=== PATIENT | female | born 1940 | race Caucasian/White ===

== ENCOUNTER 2025-07-12 15:28 | Inpatient (IN) ==
[2025-07-12] MEDS ORDERED: SODIUM CHLORIDE 0.9% 100 ML IV PRN (15:58)
--- NOTE | 2025-07-12 16:03 | Emergency Department Note ---
Impression & Plan Upper GI bleed, Anemia, Hyperglycemia, Fracture of lumbar spine ED Provider Note NAME: ANABELLE NEWBERRY AGE: 84 SEX: F : 1940 ARRIVES VIA: Walk-In INFORMANT: Patient ED PROVIDER(S): Ochoa Lewis DO CHIEF COMPLAINT: Black stools, weakness and shortness of breath HPI: Patient is an 84-year-old female who presents to the ER with a past medical history of diabetes, hypertension, hypothyroidism. She notes that she has been very weak and rundown for the past week. She has had 2 multiple dark tarry stools. She does take Eliquis. Daughter is present at bedside and provides additional history for A-fib. She denies any headache or change in vision. When she is up moving around she does get short of breath. She does have some mild belly pain. No dysuria, urgency, or frequency. No other exacerbating or remitting factors. ADDITIONAL HISTORY OBTAINED: Per HPI Chronic Medical/Social Conditions Affecting Care: Per HPI PAST MEDICAL HISTORY:See Below PAST SURGICAL HISTORY:See Below FAMILY HISTORY:See Below SOCIAL HISTORY:See Below HOME MEDICATIONS:See Below ALLERGIES:See Below VITALS:See Below PHYSICAL EXAMINATION: GENERAL: Sitting up in bed, alert, well appearing, well nourished, no distress, non-toxic EYE EXAM: normal conjunctiva. PERRL and EOM's grossly intact. OROPHARYNX: no exudate, no erythema, lips, buccal mucosa, and tongue normal and mucous membranes are moist NECK: supple, no nuchal rigidity, no adenopathy, non-tender LUNGS: Clear to auscultation. Normal chest wall mechanics HEART: no murmurs, S1 normal and S2 normal ABDOMEN: abdomen soft, non-tender, normo-active bowel sounds, no masses, no rebound or guarding. RECTAL:Hem + black stools UPPER EXTREMITIES: upper extremities are grossly normal. LOWER EXTREMITIES: No pitting edema. NEURO EXAM: Normal sensorium, cranial nerves II-XII grossly intact, normal speech, no gross weakness of arms, no gross weakness of legs. No drift. Finger to nose intact. Gross sensation intact. MEDICAL DECISION MAKING: Patient is an 84-year-old female who presents ER for the above-stated complaint. IV was established and blood work was obtained. Hemoglobin went from 12-9. Globin LFTs bilirubin is unremarkable. Patient was typed and crossed. She has no other complaints at this time. CT showed an L4 fracture likely secondary to a fall several days ago. Patient was placed on a Protonix drip and bolus. Discussed case with hospitalist for further evaluation management treatment. Vitals were stable consequently did not contact GI at this time. Will not reverse at this time. Consults/Care Managements Discussions: Per [facility] Triage Nursing notes reviewed. Limited review of prior medical records performed Vital Signs: reviewed and remarkable for no significant abnormalities Differential diagnosis: Diverticulosis, AVM, coagulopathy, colitis, inflammatory bowel disease, malignancy, Kelsi-Olivo tear, esophagitis, peptic ulcer disease, variceal bleed, gastritis, epistaxis, fissure, hemorrhoids, as well as other pathologies. ER treatment provided: See below Diagnostics interpreted by me include EKG and cardiac monitoring as listed below: -Cardiac Monitoring: An order was placed for continuous cardiac monitoring. The monitor shows a rate of 70 with sinus rhythm. -ECG: Sinus rhythm rate of 66 First-degree AV block Right bundle branch block QTc 434 -Laboratory studies:Interpreted by me as stated above in MDM and shown below. Imaging studies: Xrays: As interpreted by me:none CTs show: CT abdomen pelvis show L4 fracture Procedures:none Critical Care: None Past Med/Surg History Problem List (Updated 07/12/25 @ 22:12 by Ochoa Lewis DO) Fracture of lumbar spine (Acute) Hyperglycemia (Acute) Anemia (Acute) Chronic anticoagulation Upper GI bleed (Acute) Compression fracture of L4 vertebra Spinal stenosis CAD (coronary artery disease) Paroxysmal A-fib History of total right knee replacement (Chronic) Fall (Acute) Left wrist fracture (Acute) Ankle fracture, left (Acute) Diabetes mellitus, type II (Chronic) Hypertension (Chronic) Hypothyroidism (Chronic) GERD (gastroesophageal reflux disease) (Chronic) Social History Smoking Status: Never smoker Second Hand Exposure: No; Do You Dip or Chew Tobacco: No; Tobacco Cessation Education Requested by Patient: No Hx Alcohol Use: No Hx Substance Use: No Preferred Language: Vincentian Communication Ability: Effective Materials Branch Chief Required: No Beliefs That Will Affect Care: None Current Living Situation: Family Current Living Situation Comment: Lives with granddaughter Cierra Other Information That Helps Us Care for You: No Feels Safe at Home: Yes Safety Concerns: Feels Safe At This Time Assistive Devices: Denture - Upper, Denture - Lower, Hospital Bed and Walker Allergies Allergies Allergy/AdvReac Type Severity Reaction Status Date / Time meperidine Allergy Intermediate GI SYMPTOMS Verified 07/12/25 18:51 morphine Allergy Intermediate GI SYMPTOMS Verified 07/12/25 18:51 Yohcqls-NRY-CdT Reductase Allergy Intermediate makes leg Verified 07/12/25 18:51 Inhibitor "sleepy" [Imzihis-Cyc-Qns Reductase Inhibitor] Home Meds Home Medications Medication Instructions Recorded Confirmed FUROSEMIDE (LASIX) 20 mg PO DAILY #0 tabs 02/12/15 INSULIN DETEMIR (LEVEMIR) 44 unit SC DAILY ##0 02/12/15 Levothyroxine Sodium (Synthroid) 88 mcg PO DAILY ##0 02/12/15 Metoprolol Succinate (TOPROL XL) 25 mg PO DAILY #30 tabs 02/12/15 Pantoprazole (Protonix) 40 mg PO DAILY #30 tabs 02/12/15 Potassium Chloride (K-Tabs) 30 meq PO DAILY ##0 02/12/15 Previous Rx's Medication Instructions Recorded Acetaminophen (Tylenol Extra 2 tabs PO Q6H PRN moderate pain ##0 02/17/15 Strength) Tramadol (Ultram) 50 mg PO Q6H PRN severe pain #40 02/17/15 tabs platform attachment ##1 02/17/15 wheel chair ##1 02/17/15 Results & Data (ED) Vital Signs Vital Signs - 24 hr 07/12/25 15:46 07/12/25 16:05 07/12/25 16:30 Temperature 36.6 C Temperature Source Temporal Artery Scan Pulse Rate 91 H 71 68 Pulse Rate from SpO2 Sensor Respiratory Rate 18 21 Respiratory Effort / Characteristics Non-Labored Spontaneous Respiratory Depth Normal Blood Pressure 109/61 148/71 H Blood Pressure Mean 77 119 Pulse Oximetry 96 95 96 Oxygen Delivery Method Room Air Room Air Sepsis Recent Fever Within 48 Hours No Sepsis New/Unexplained Change in Mental Status No Sepsis Action Taken by Nursing No Action Required 07/12/25 16:51 07/12/25 17:00 07/12/25 18:00 Temperature Temperature Source Pulse Rate 70 69 67 Pulse Rate from SpO2 Sensor 64 Respiratory Rate 16 18 Respiratory Effort / Characteristics Respiratory Depth Blood Pressure 131/73 151/81 H Blood Pressure Mean 100 104 Pulse Oximetry 97 97 Oxygen Delivery Method Sepsis Recent Fever Within 48 Hours Sepsis New/Unexplained Change in Mental Status Sepsis Action Taken by Nursing 07/12/25 18:30 07/12/25 19:30 Temperature Temperature Source Pulse Rate 71 67 Pulse Rate from SpO2 Sensor Respiratory Rate 16 17 Respiratory Effort / Characteristics Respiratory Depth Blood Pressure 147/74 H 157/74 H Blood Pressure Mean 117 125 Pulse Oximetry 97 96 Oxygen Delivery Method Sepsis Recent Fever Within 48 Hours Sepsis New/Unexplained Change in Mental Status Sepsis Action Taken by Nursing Laboratory Data 07/12/25 21:39 07/12/25 16:00 Lab Results 07/12/25 07/12/25 07/12/25 Range/Units 16:00 16:14 16:29 WBC 6.57 (4.8-10.8) K/ul RBC 3.79 L (4.20-5.40) M/uL Hgb 9.6 L (12.0-16.0) g/dl POC Hgb 10.5 L (12.0-16.0) g/dl Hct 31.2 L (37.0-47.0) % POC Hct 31 L (37-47) % MCV 82.3 (80.0-100.0) fL MCH 25.3 (25.0-34.0) pg MCHC 30.8 L (32.0-36.0) g/dL RDW Std Deviation 44.8 (36.4-46.3) fL RDW Coeff of Tracy 15.0 H (11.5-14.5) % Plt Count 254 (130-400) K/uL MPV 10.1 (9.4-12.4) fL Immature Gran % (Auto) 0.3 % Neut % (Auto) 54.5 % Lymph % (Auto) 33.5 % Burt % (Auto) 8.8 % Eos % (Auto) 2.4 % Baso % (Auto) 0.5 % Neut # (Auto) 3.58 (1.40-6.50) K/uL Lymph # (Auto) 2.20 (1.20-3.40) K/uL Burt # (Auto) 0.58 (0.11-0.59) K/uL Eos # (Auto) 0.16 (0.00-0.50) K/uL Baso # (Auto) 0.03 (0.00-0.20) K/uL Immature Gran # (Auto) 0.02 (0.01-0.20) K/uL PT 11.9 (9.0-12.0) Seconds INR 1.1 (0.9-1.1) APTT 24 (21-31) Seconds PTT Ratio 0.9 POC Sodium 138 (135-144) mmol/L Sodium 138 (136-145) mmol/L POC Potassium 4.3 (3.3-5.0) mmol/L Potassium 4.3 (3.5-5.1) mmol/L POC Chloride 101 (101-112) mmol/L Chloride 102 (98-107) mmol/L Carbon Dioxide 26 (21-32) mmol/L POC Total CO2 26 (24-31) mmol/L Anion Gap 10 (3-11) POC Anion Gap 16.0 (16-25) mmol/L POC BUN 23 H (7-18) mg/dl BUN 23 (6-23) mg/dl Creatinine 0.66 (0.6-1.2) mg/dl POC Creatinine 0.8 (0.6-1.3) mg/dl Est Cr Clr Drug Dosing 64.1 ml/min eGFR 85.38 BUN/Creatinine Ratio 34.8 H (10-20) Glucose 124 H (70-99(Fasting)) mg/dl POC Glucose (other) 123 H (70-99) mg/dl Calcium 10.5 H (8.6-10.3) mg/dl POC Ioniz Calcium Amira 1.32 (1.12-1.32) mmol/l Total Bilirubin 0.4 (0.2-1.0) mg/dl AST 16 (13-39) U/L ALT 8 (7-52) U/L Alkaline Phosphatase 92 (34-104) U/L Total Protein 7.8 (6.0-8.3) gm/dl Albumin 3.8 (3.4-5.0) gm/dl Globulin 4.0 (2.5-4.0) gm/dl Albumin/Globulin Ratio 1.0 (0.9-2) Blood Type A Positive Blood Type Recheck Antibody Screen NEGATIVE Crossmatch See Detail 07/12/25 Range/Units 17:26 WBC (4.8-10.8) K/ul RBC (4.20-5.40) M/uL Hgb (12.0-16.0) g/dl POC Hgb (12.0-16.0) g/dl Hct (37.0-47.0) % POC Hct (37-47) % MCV (80.0-100.0) fL MCH (25.0-34.0) pg MCHC (32.0-36.0) g/dL RDW Std Deviation (36.4-46.3) fL RDW Coeff of Tracy (11.5-14.5) % Plt Count (130-400) K/uL MPV (9.4-12.4) fL Immature Gran % (Auto) % Neut % (Auto) % Lymph % (Auto) % Burt % (Auto) % Eos % (Auto) % Baso % (Auto) % Neut # (Auto) (1.40-6.50) K/uL Lymph # (Auto) (1.20-3.40) K/uL Burt # (Auto) (0.11-0.59) K/uL Eos # (Auto) (0.00-0.50) K/uL Baso # (Auto) (0.00-0.20) K/uL Immature Gran # (Auto) (0.01-0.20) K/uL PT (9.0-12.0) Seconds INR (0.9-1.1) APTT (21-31) Seconds PTT Ratio POC Sodium (135-144) mmol/L Sodium (136-145) mmol/L POC Potassium (3.3-5.0) mmol/L Potassium (3.5-5.1) mmol/L POC Chloride (101-112) mmol/L Chloride (98-107) mmol/L Carbon Dioxide (21-32) mmol/L POC Total CO2 (24-31) mmol/L Anion Gap (3-11) POC Anion Gap (16-25) mmol/L POC BUN (7-18) mg/dl BUN (6-23) mg/dl Creatinine (0.6-1.2) mg/dl POC Creatinine (0.6-1.3) mg/dl Est Cr Clr Drug Dosing ml/min eGFR BUN/Creatinine Ratio (10-20) Glucose (70-99(Fasting)) mg/dl POC Glucose (other) (70-99) mg/dl Calcium (8.6-10.3) mg/dl POC Ioniz Calcium Amira (1.12-1.32) mmol/l Total Bilirubin (0.2-1.0) mg/dl AST (13-39) U/L ALT (7-52) U/L Alkaline Phosphatase (34-104) U/L Total Protein (6.0-8.3) gm/dl Albumin (3.4-5.0) gm/dl Globulin (2.5-4.0) gm/dl Albumin/Globulin Ratio (0.9-2) Blood Type Blood Type Recheck A Positive Antibody Screen Crossmatch Administered Medications Pantoprazole Sodium 40 mg/ (Dextrose) 100 mls @ 20 mls/hr IV Q5H PAMELLA Stop: 08/11/25 16:14 Last Admin: 07/12/25 21:27 Dose: 8 mg/hr, 20 mls/hr Documented By: gary Infusion: 07/12/25 21:27 Dose: Infused Documented By: gary Admin: 07/12/25 16:39 Dose: 8 mg/hr, 20 mls/hr Documented By: BONIFACIO Lactated Ringer's (Lr) 1,000 mls @ 80 mls/hr IV .[id number] PAMELLA Stop: 07/13/25 22:13 Last Admin: 07/12/25 21:26 Dose: 80 mls/hr Documented By: gary Insulin Aspart (Insulin Aspart Per Unit Charge) 0 units SC Q6 PAMELLA Stop: 08/11/25 21:29 Last Admin: 07/12/25 21:27 Dose: Not Given Documented By: gary Co-signed By: FEDERICO Insulin Glargine (Lantus Per Unit Charge) 5 units SQ HS PAMELLA Stop: 08/11/25 21:13 Last Admin: 07/12/25 21:27 Dose: Not Given Documented By: gary Discontinued Medications Pantoprazole Sodium 80 mg/ (Dextrose) 120 mls @ 480 mls/hr IV NOW ONE Stop: 07/12/25 16:12 Last Infusion: 07/12/25 16:39 Dose: Infused Documented By: Admin: 07/12/25 16:20 Dose: 480 mls/hr Documented By: BONIFACIO Ioversol (Optiray 320 100ml) 90 ml IV ONCE ONE Stop: 07/12/25 17:07 Last Admin: 07/12/25 17:07 Dose: 90 ml Documented By: ANTHONY Pantoprazole Sodium (Pantoprazole Bolus/Drip) 1 each IV NOW STA Stop: 07/12/25 15:59 Last Admin: 07/12/25 16:33 Dose: Not Given Documented By: MNE Imaging Data Radiologist's Impression: Abdomen/Pelvis CT 07/12/25 15:59 EXAMINATION: CT of the abdomen and pelvis performed after the administration of IV contrast TECHNIQUE: Helical CT images from the lung bases through the symphysis pubis were obtained with contrast. Coronal and sagittal reformatted images were generated at a workstation for further assessment. Dose reduction techniques were achieved by using automatic exposure control and/or adjustment of mA and/or kV according to patient size and/or use of iterative reconstruction technique. COMPARISON: None HISTORY: Abdominal pain FINDINGS: Lower chest: No consolidation. No pleural effusion or pneumothorax. Mild reticular abnormality with a peripheral predominance seen in the lower lungs consistent with interstitial lung disease. Cardiomegaly. Liver: No suspicious liver lesions. Portal veins appear patent. Gallbladder: Cholecystectomy Spleen: Normal size. Pancreas: No suspicious pancreatic lesions. The pancreatic duct is not dilated. Adrenal glands: No adrenal nodules. Kidneys: No hydronephrosis or obstructing renal stones. Few small cysts. You promised not to yell and scream if they play without you for a little bit Bladder / Pelvic organs: Unremarkable. Bowel: No bowel obstruction. No abnormal bowel wall thickening. The appendix is unremarkable. Sigmoid diverticulosis without diverticulitis. Lymph nodes: No retroperitoneal, mesenteric, or pelvic lymphadenopathy. Peritoneum / Retroperitoneum: No free fluid or air within the abdomen. Vessels: No infrarenal aortic aneurysm. Bones and soft tissues: No suspicious lesion in the bones. Extensive postoperative repair changes of the abdominal wall with mesh. Acute superior endplate compression deformity at L4 with approximately 30 to 40% height loss. IMPRESSION: Acute fracture at L4. No retropulsion. No other acute findings. Electronically signed by Karl Bell 07-12-2025 6:30 PM Discharge Plan Visit Data Chief Complaint: GI Assessment Stated Complaint: BLACK STOOL, STOMACH CRAMPING, FATIGUE ED Provider: Ochoa Lewis Discharge Problem: Upper GI bleed, Anemia, Hyperglycemia, Fracture of lumbar spine Condition: Fair Discharge Problem: Anemia Qualifiers: Anemia type: unspecified type Qualified Code(s): D64.9 - Anemia, unspecified Fracture of lumbar spine Qualifiers: Encounter type: initial encounter Lumbar vertebra fracture level: L4 Fracture morphology: unspecified fracture morphology
[2025-07-12 16:15] LABS: Hematocrit (blood only) 31.2 % (37.0-47.0); Hemoglobin 9.6 g/dl (12.0-16.0); Immature Granulocytes # (auto) 0.02 K/uL (0.01-0.20); Immature Granulocytes % (auto) 0.3 %; Mean Corpuscular Hemoglobin 25.3 pg (25.0-34.0); Mean Corpuscular Volume 82.3 fL (80.0-100.0); Platelet Count 254 K/uL (130-400); RDW Standard Deviation 44.8 fL (36.4-46.3); Red Blood Count 3.79 M/uL (4.20-5.40); White Blood Count 6.57 K/ul (4.8-10.8)
[2025-07-12 16:33] LABS: Alanine Aminotransferase 8.0 U/L (7-52); Albumin Globulin Ratio 1.0 (0.9-2); Albumin Level 3.8 gm/dl (3.4-5.0); Alkaline Phosphatase 92.0 U/L (34-104); Anion Gap 10.0 (3-11); Bilirubin,Total 0.4 mg/dl (0.2-1.0); Blood Urea Nitrogen 23.0 mg/dl (6-23); Calcium 10.5 mg/dl (8.6-10.3); Carbon Dioxide 26.0 mmol/L (21-32); Chloride 102.0 mmol/L (98-107); Creatinine Clr Calc Pharmacy 64.1 ml/min; Globulin 4.0 gm/dl (2.5-4.0); Glucose 124.0 mg/dl (70-99(Fasting)); Potassium 4.3 mmol/L (3.5-5.1); Sodium 138.0 mmol/L (136-145); Total Protein 7.8 gm/dl (6.0-8.3)
[2025-07-12] MEDS: PANTOPRAZOLE BOLUS/DRIP IV STA (16:33)
[2025-07-12] MEDS: PANTOprazole 40 MG in DEXTROSE 5% MINI-B 100 ML IV SCH (16:39)
[2025-07-12 16:59] LABS: INR 1.1 (0.9-1.1); Partial Thromboplastin Time 24 Seconds (21-31); Prothrombin Time 11.9 Seconds (9.0-12.0)
[2025-07-12] MEDS: OPTIRAY 320 100ml IV ONE (17:07)
--- NOTE | 2025-07-12 18:31 | CT Scan Report ---
EXAMINATION: CT of the abdomen and pelvis performed after the administration of IV contrast TECHNIQUE: Helical CT images from the lung bases through the symphysis pubis were obtained with contrast. Coronal and sagittal reformatted images were generated at a workstation for further assessment. Dose reduction techniques were achieved by using automatic exposure control and/or adjustment of mA and/or kV according to patient size and/or use of iterative reconstruction technique. COMPARISON: None HISTORY: Abdominal pain FINDINGS: Lower chest: No consolidation. No pleural effusion or pneumothorax. Mild reticular abnormality with a peripheral predominance seen in the lower lungs consistent with interstitial lung disease. Cardiomegaly. Liver: No suspicious liver lesions. Portal veins appear patent. Gallbladder: Cholecystectomy Spleen: Normal size. Pancreas: No suspicious pancreatic lesions. The pancreatic duct is not dilated. Adrenal glands: No adrenal nodules. Kidneys: No hydronephrosis or obstructing renal stones. Few small cysts. You promised not to yell and scream if they play without you for a little bit Bladder / Pelvic organs: Unremarkable. Bowel: No bowel obstruction. No abnormal bowel wall thickening. The appendix is unremarkable. Sigmoid diverticulosis without diverticulitis. Lymph nodes: No retroperitoneal, mesenteric, or pelvic lymphadenopathy. Peritoneum / Retroperitoneum: No free fluid or air within the abdomen. Vessels: No infrarenal aortic aneurysm. Bones and soft tissues: No suspicious lesion in the bones. Extensive postoperative repair changes of the abdominal wall with mesh. Acute superior endplate compression deformity at L4 with approximately 30 to 40% height loss. IMPRESSION: Acute fracture at L4. No retropulsion. No other acute findings. Electronically signed by Karl Bell 07-12-2025 6:30 PM
--- NOTE | 2025-07-12 19:45 | History & Physical Report ---
Date of Service July 12, 2025 Assessment & Plan (1) Upper GI bleed: (2) Chronic anticoagulation: (3) Compression fracture of L4 vertebra: (4) Diabetes mellitus, type II: (5) Hypertension: (6) Hypothyroidism: (7) GERD (gastroesophageal reflux disease): (8) Paroxysmal A-fib: (9) CAD (coronary artery disease): (10) Spinal stenosis: Plan 84 y/o female with PMHx of T2DM, hypothyroidism, pAFib on Eliquis, GERD, spinal stenosis, CAD s/p coronary stenting January 2025, porcine aortic valve replacement, stroke April 2024 presents with progressive fatigue over the past week and melena: #Upper GI Bleed // #Acute blood loss anemia: Hgb 9.6 (about 2.5 points below last documented baseline) - likely acute upper GI bleed, patient is on chronic anticoagulation but otherwise does not have obvious predisposing factors NPO, IV fluids: LR@80mL/h Hemoccult all stools Continue Protonix drip Hold Eliquis in the setting of acute bleed Continue Plavix at this time given fairly recent coronary stent placement Serial H&H Q4H, transfuse for symptomatic anemia, hemodynamic instability, or Hgb <8 given h/o ischemic heart disease Consult GI for consideration of EGD depending on clinical course #Acute L4 compression fracture // #Spinal stenosis: Incidentally noted acute superior endplate compression deformity of L4 Of note, patient had mechanical ground level fall about 3 weeks ago Pain control as needed with Tylenol, Tramadol #pAFib // #h/o stroke: There is certainly risk involved whether Eliquis is held or continued. Will hold at this time given uncertain rate of blood loss. Follow serial H&H, appreciate GI input regarding appropriate resumption of anticoagulation #CAD // #HTN // #CHF: Continue Metoprolol, Plavix, Lasix Consider holding Plavix based on risk/benefit analysis and H&H trend #T2DM: Lantus 5U QHS while NPO BSG checks ACHS SSI #Hypothyroidism: Continue synthroid Dispo: Admit med-tele VTE ppx: chemical ppx held in the setting of acute bleed Diet: NPO Full Code Admission and Anticipated Discharge Date Admission Date: Attending addendum: I have physically seen this patient, have supervised the medical residents activities, and agree with the H&P unless as otherwise noted. Assessment and Plan: The patient is an 84-year-old female with past medical history including diabetes mellitus type 2, hypothyroidism, PAF on Eliquis, GERD, spinal stenosis, CAD status post coronary artery stenting 02/08, porcine AVR, and stroke April 2024. She presents to the emergency department with report of dark tarry stools, and progressively worsening fatigue over the past week. Upper GI bleed/acute blood loss anemia- Hemoglobin on admission was 9.6, 2.5 below per report of 12.1 on 07/14/2024 N.p.o. Hemoccult all stools LR at 80 mL/h Type and screen performed in the ED Continue Protonix drip begun by the ED Hold Eliquis Continue Plavix for now H&H every 4 hours Consult gastroenterology Paroxysmal atrial fibrillation/history of CVA/CAD/hypertension/CHF- Continue metoprolol and Plavix holding Eliquis and Lasix Diabetes mellitus type 2-- Continue Lantus as noted Placed on Accu-Cheks with NovoLog SSI Acute L4 compression fracture/spinal stenosis- Patient is status post ground-level fall 3 weeks ago Pain controlled noted Patient is not overtly symptomatic Remaining orders and notations as noted History of Present Illness Primary Care Provider: Keenan Vivar MD 84 y/o female with PMHx of T2DM, hypothyroidism, pAFib on Eliquis, GERD, spinal stenosis, CAD s/p coronary stenting January 2025, porcine aortic valve replacement 2021, stroke April 2024 presents with progressive fatigue over the past week and melena. Patient reports MCCABE that has progressively intensified over the past week. Denies chest pain, shortness of breath at rest. Noticed black, tarry stool earlier today. Denies h/o GI bleed. Patient is on a daily PPI for GERD. Denies NSAID or steroid use. Denies recent vomiting. Denies h/o liver disease. Denies EtOH or tobacco use. Patient is on Eliquis for pAF, reports stroke in April 2024 that occurred in the setting of inconsistent Eliquis therapy. Allergies Allergy/AdvReac Type Severity Reaction Status Date / Time meperidine Allergy Intermediate GI SYMPTOMS Verified 07/12/25 18:51 morphine Allergy Intermediate GI SYMPTOMS Verified 07/12/25 18:51 Kqegpgk-HDJ-TeJ Reductase Allergy Intermediate makes leg Verified 10/26/25 18:51 Inhibitor "sleepy" [Skrtbel-Hgj-Xgc Reductase Inhibitor] Home Medications Medication Instructions Recorded Confirmed Type FUROSEMIDE (LASIX) 20 mg PO DAILY #0 tabs 02/12/15 History INSULIN DETEMIR (LEVEMIR) 44 unit SC DAILY ##0 02/12/15 History Levothyroxine Sodium (Synthroid) 88 mcg PO DAILY ##0 02/12/15 History Metoprolol Succinate (TOPROL XL) 25 mg PO DAILY #30 tabs 02/12/15 History Pantoprazole (Protonix) 40 mg PO DAILY #30 tabs 02/12/15 History Potassium Chloride (K-Tabs) 30 meq PO DAILY ##0 02/12/15 History Acetaminophen (Tylenol Extra 2 tabs PO Q6H PRN moderate pain ##0 02/17/15 Rx Strength) Tramadol (Ultram) 50 mg PO Q6H PRN severe pain #40 02/17/15 Rx tabs platform attachment ##1 02/17/15 Rx wheel chair ##1 02/17/15 Rx Past Med/Surg History Problem List (Updated 07/12/25 @ 22:12 by Ochoa Lewis DO) Fracture of lumbar spine (Acute) Hyperglycemia (Acute) Anemia (Acute) Chronic anticoagulation Upper GI bleed (Acute) Compression fracture of L4 vertebra Spinal stenosis CAD (coronary artery disease) Paroxysmal A-fib History of total right knee replacement (Chronic) Fall (Acute) Left wrist fracture (Acute) Ankle fracture, left (Acute) Diabetes mellitus, type II (Chronic) Hypertension (Chronic) Hypothyroidism (Chronic) GERD (gastroesophageal reflux disease) (Chronic) Social History Smoking Status: Never smoker Second Hand Exposure: No; Do You Dip or Chew Tobacco: No; Tobacco Cessation Education Requested by Patient: No Hx Alcohol Use: No Hx Substance Use: No Preferred Language: Faroese Communication Ability: Effective Airport Skilled Maintenance Supervisor Required: No Beliefs That Will Affect Care: None Current Living Situation: Family Current Living Situation Comment: Lives with granddaughter Cierra Other Information That Helps Us Care for You: No Feels Safe at Home: Yes Safety Concerns: Feels Safe At This Time Assistive Devices: Denture - Upper, Denture - Lower, Hospital Bed and Walker Review of Systems Review of Systems: as per HPI Physical Exam Physical Exam: Constitutional: no acute distress HEENT: NCAT, no conjunctival injection CV: extremities well-perfused, no LE edema Resp: no increased work of breathing GI: nondistended MSK: no gross deformities Skin: warm, dry, no rash appreciated Neuro: alert, oriented, no focal neurologic deficit appreciated Results & Data Results & Data Vital Signs (Past 12 Hours) Vital Signs Temp Pulse Resp BP Pulse Ox O2 Del Method 07/12/25 18:30 71 16 147/74 H 97 07/12/25 18:00 67 18 151/81 H 97 07/12/25 17:00 69 16 131/73 97 07/12/25 16:51 70 07/12/25 16:30 68 21 148/71 H 96 07/12/25 16:05 71 95 Room Air 07/12/25 15:46 36.6 C 91 H 18 109/61 96 Room Air Resident Activity Tracking Resident Involvement: Resident Care Provided Care Provided: Adult Hospital Medicine
[2025-07-12] MEDS ORDERED: CARBOHYDRATES FOR HYPOGLYCEMIA PO PRN (21:14)
[2025-07-12] MEDS ORDERED: GLUCAGON FOR INJ 1 MG VIAL SQ PRN (21:14)
[2025-07-12] MEDS ORDERED: GLUCOSE 40% GEL 15 GM TUBE PO PRN (21:14)
[2025-07-12] MEDS ORDERED: DEXTROSE 50% 50 ML SYRINGE IV PRN (21:14)
[2025-07-12] MEDS ORDERED: GLUCOSE 10 TAB/TUBE PO PRN (21:14)
[2025-07-12] MEDS: LACTATED RINGER'S 1,000 ML IV SCH (21:26)
[2025-07-12] MEDS: INSULIN ASPART PER UNIT CHARGE SC SCH (21:27)
[2025-07-12] MEDS: LANTUS PER UNIT CHARGE SQ SCH (21:27)
[2025-07-12 21:53] LABS: Hematocrit (blood only) 26.7 % (37.0-47.0); Hemoglobin 8.7 g/dl (12.0-16.0)
[2025-07-13 01:50] LABS: Hematocrit (blood only) 26.4 % (37.0-47.0); Hemoglobin 8.3 g/dl (12.0-16.0)
--- NOTE | 2025-07-13 05:12 | Billing Data ---
Date of Service July 13, 2025 Coding Level of Care Code 32197 INT INP/OBS CARE
[2025-07-13] MEDS: LEVOTHYROXINE SODIUM 88 MCG TABLET PO SCH (05:46)
[2025-07-13 07:04] LABS: Hematocrit (blood only) 26.5 % (37.0-47.0); Hemoglobin 8.1 g/dl (12.0-16.0)
[2025-07-13] MEDS ORDERED: Nursing to Pharmacy Communication SCH ×3 (07:30→19:00)
[2025-07-13 07:39] LABS: Alanine Aminotransferase 6.0 U/L (7-52); Albumin Globulin Ratio 1.0 (0.9-2); Albumin Level 3.1 gm/dl (3.4-5.0); Alkaline Phosphatase 72.0 U/L (34-104); Anion Gap 9.0 (3-11); Bilirubin,Total 0.5 mg/dl (0.2-1.0); Blood Urea Nitrogen 18.0 mg/dl (6-23); Calcium 9.5 mg/dl (8.6-10.3); Carbon Dioxide 27.0 mmol/L (21-32); Chloride 104.0 mmol/L (98-107); Creatinine Clr Calc Pharmacy 75.3 ml/min; Globulin 3.1 gm/dl (2.5-4.0); Glucose 136.0 mg/dl (70-99(Fasting)); Potassium 3.6 mmol/L (3.5-5.1); Sodium 140.0 mmol/L (136-145); Total Protein 6.2 gm/dl (6.0-8.3)
[2025-07-13] MEDS: ESCITALOPRAM OXALATE 10 MG TAB PO SCH (08:12)
[2025-07-13] MEDS: CLOPIDOGREL BISULFATE 75 MG TAB PO SCH (08:12)
[2025-07-13] MEDS: METOPROLOL SUCC 25MG EXT REL TAB PO SCH (08:14)
[2025-07-13] MEDS ORDERED: FUROSEMIDE 20 MG TAB PO SCH (09:00)
[2025-07-13 09:43] LABS: Hematocrit (blood only) 25.9 % (37.0-47.0); Hemoglobin 8.1 g/dl (12.0-16.0)
--- NOTE | 2025-07-13 10:15 | Gastrointestinal Consultation ---
Date of Consultation July 13, 2025 Assessment & Plan (1) Melena: (2) Anemia: Plan Eliquis presently held. It does appear she has been prescribed Plavix as well. -Continue IV Protonix gtt -Continue to monitor H/H -Continue to monitor for overt GI bleeding -Continue NPO status -EGD this afternoon for further evaluation of melena/anemia Supervising Physician Co-Signing Physician Notes Some orthostatic type symptoms. Following H&H. She has lower abdominal cramping. Digestion. Remote history of peptic ulcer disease. EGD today to evaluate for peptic ulcer disease or in a situation more commonly AVMs. Hiatal hernia and Km erosions should also be considered. Risk benefits and upper endoscopy explained informed consent obtained. Eliquis on hold patient continues to take the Plavix. History of Present Illness Reason for Consultation: UGI bleeding Attending Physician: Steven Valencia MD History of Present Illness Patient is an 84 yo female who presented to the ED for melena and dyspnea on exertion. She notes she had been feeling progressively more short of breath when exerting herself, but prior to admission she developed abdominal cramping and had a large black bowel movement. She notes that she has a history of peptic ulcers many years ago. She takes Tramadol, but denies any other NSAID use. She is on Eliquis due to a history of a Porcine valve replacement as well as A fib. Her initial Hgb in the ED was 9.6. Her current H/H is 8.1/25.9. She is on an IV PPI gtt at present. She takes Protonix 40 mg once daily at home. Several weeks ago she sustained a fall and has an acute L4 compression fracture. No tobacco use. No pertinent family history. No hematemesis, hematochezia, nausea or vomiting. She notes her abdominal discomfort has resolved since admission. She remains weak. Her Eliquis is on hold. She did have a CVA in 2023 during an interruption to her Eliquis. She is on Plavix currently. CT abdomen/pelvis in the ED: IMPRESSION: Acute fracture at L4. No retropulsion. No other acute findings. Allergies Allergy/AdvReac Type Severity Reaction Status Date / Time meperidine Allergy Intermediate GI SYMPTOMS Verified 07/12/25 18:51 morphine Allergy Intermediate GI SYMPTOMS Verified 07/12/25 18:51 Eaueidv-UBM-IvJ Reductase Allergy Intermediate makes leg Verified 07/12/25 18:51 Inhibitor "sleepy" [Eqvbcjq-Boy-Yjb Reductase Inhibitor] Home Medications Medication Instructions Recorded Confirmed Type FUROSEMIDE (LASIX) 20 mg PO DAILY #0 tabs 02/12/15 History INSULIN DETEMIR (LEVEMIR) 44 unit SC DAILY ##0 02/12/15 History Levothyroxine Sodium (Synthroid) 88 mcg PO DAILY ##0 02/12/15 History Metoprolol Succinate (TOPROL XL) 25 mg PO DAILY #30 tabs 02/12/15 History Pantoprazole (Protonix) 40 mg PO DAILY #30 tabs 02/12/15 History Potassium Chloride (K-Tabs) 30 meq PO DAILY ##0 02/12/15 History Acetaminophen (Tylenol Extra 2 tabs PO Q6H PRN moderate pain ##0 02/17/15 Rx Strength) Tramadol (Ultram) 50 mg PO Q6H PRN severe pain #40 02/17/15 Rx tabs platform attachment ##1 02/17/15 Rx wheel chair ##1 02/17/15 Rx Patient History Social History Smoking Status: Never smoker Second Hand Exposure: No; Do You Dip or Chew Tobacco: No; Hx Alcohol Use: No Hx Substance Use: No Preferred Language: Setswana Communication Ability: Effective Medical Receptionist Biller Required: No Beliefs That Will Affect Care: None Current Living Situation: Family Current Living Situation Comment: Lives with granddaughter Cierra Feels Safe at Home: Yes Assistive Devices: Denture - Upper, Denture - Lower, Hospital Bed and Walker Review of Systems Constitutional: no fever and no chills Respiratory: no cough and no dyspnea Cardiovascular: no chest pain Gastrointestinal: + melena; no abdominal pain (resolved), no nausea, no vomiting, no coffee ground emesis, no hematemesis and no diarrhea/loose stools Physical Exam Constitutional: well developed Respiratory: normal respiratory effort Cardiovascular: Rate/Rhythm: regular rate Gastrointestinal (Abdomen): normal bowel sounds, soft, nontender, no hepatosplenomegaly Psychiatric: Orientation: alert and oriented x 3 Results & Data Vital Signs (Past 12 Hours) Vital Signs Temp Pulse Pulse Pulse Resp BP BP 07/13/25 07:25 36.9 C 67 18 95/51 L 07/13/25 06:17 73 07/13/25 03:31 36.4 C L 56 L 18 112/53 L 07/12/25 22:55 72 Pulse Ox O2 Del Method 07/13/25 07:25 95 Room Air 07/13/25 06:17 07/13/25 03:31 95 Room Air 07/12/25 22:55 PG Care Time/CCT Total # of Minutes Spent Total Time Spent with Patient: Total time spent is greater than 50% in coordination of care (as documented) at patient's floor/unit and/or counseling patient: Coding Level of Care Code 27837 INT INP/OBS CARE 3/75MIN Diagnoses Melena K92.1 Anemia D64.9 Anemia type: unspecified type (2) Anemia Anemia type: unspecified type Qualified Code(s): D64.9 - Anemia, unspecified
--- NOTE | 2025-07-13 10:43 | Hospitalist Progress Note ---
Date of Service July 13, 2025 Assessment & Plan (1) Upper GI bleed: (2) Chronic anticoagulation: (3) Compression fracture of L4 vertebra: (4) Diabetes mellitus, type II: (5) Hypertension: (6) Hypothyroidism: (7) GERD (gastroesophageal reflux disease): (8) Paroxysmal A-fib: (9) CAD (coronary artery disease): (10) Spinal stenosis: Plan 84 y/o female with PMHx of T2DM, hypothyroidism, pAFib on Eliquis, GERD, spinal stenosis, CAD s/p coronary stenting January 2025, porcine aortic valve replacement, stroke April 2024 presents with progressive fatigue over the past week and melena: #Upper GI Bleed // #Acute blood loss anemia: likely acute upper GI bleed, patient is on chronic anticoagulation but otherwise does not have obvious predisposing factors hgb on admission 9.6, now 8.1. continue to monitor. NPO, IV fluids: LR@80mL/h Continue Protonix drip Hold Eliquis in the setting of acute bleed Continue Plavix at this time given fairly recent coronary stent placement GI consulted: EGD this afternoon (07/13) #Acute L4 compression fracture // #Spinal stenosis: Incidentally noted acute superior endplate compression deformity of L4 Of note, patient had mechanical ground level fall about 3 weeks ago Pain control as needed with Tylenol, Tramadol #pAFib // #h/o stroke: Eliquis on hold, will plan to resume when able #CAD // #HTN // #CHF: Continue Metoprolol, Plavix, Lasix Plavix has been continued thus far. #T2DM: Lantus 5U QHS while NPO BSG checks ACHS SSI #Hypothyroidism: Continue Synthroid DVT prophylaxis: hold in setting of acute GI bleeding Full Code Admission and Anticipated Discharge Date Admission Date: July 12, 2025 Supervising Physician Co-Signing Physician Notes The patient was not seen by me. The chart was reviewed. Case discussed with MONICA Estrella. Agree with assessment and plan Subjective Kaitlyn was seen & examined this morning. she reports to be feeling well today. States that she had a slight headache at time of encounter. States she had been having dark stools ~ 1-2 times per day for 1 week. States she is on Eliquis for her heart valve. She denies abdominal pain, CP, or SOB. Physical Exam Physical Exam: General: NAD, VS: BP 162/76; P66; R16; T37.1C Resp: normal respiratory effort, lungs clear to auscultation CV: RRR, no murmur Abd: normal bowel sounds, tender to lower abdominal region Extremities: Moves all extremities, no edema Neuro: A&O x3 Skin: intact, no lesions noted Results & Data Results & Data Vital Signs (Past 12 Hours) Vital Signs Temp Pulse Pulse Pulse Resp BP BP 07/13/25 07:25 36.9 C 67 18 95/51 L 07/13/25 06:17 73 07/13/25 03:31 36.4 C L 56 L 18 112/53 L 07/12/25 22:55 72 Pulse Ox O2 Del Method 07/13/25 07:25 95 Room Air 07/13/25 06:17 07/13/25 03:31 95 Room Air 07/12/25 22:55 PG Care Time/CCT Total # of Minutes Spent Total Time Spent with Patient: Total time spent is greater than 50% in coordination of care (as documented) at patient's floor/unit and/or counseling patient: Coding Level of Care Code 51860 SUB INP/OBS CARE 2/35MIN Diagnoses Upper GI bleed K92.2 Chronic anticoagulation Z79.01 Compression fracture of L4 vertebra S32.040A Diabetes mellitus, type II E11.9 Hypertension I10 Hypothyroidism E03.9 GERD (gastroesophageal reflux disease) K21.9 Paroxysmal A-fib I48.0 CAD (coronary artery disease) I25.10 Spinal stenosis M48.00
--- NOTE | 2025-07-13 12:00 | Anesthesiology Consultation ---
Date of Service July 13, 2025 Assessment & Plan Chart Review Chart Review: Acceptable Risk for Surgery and Patient NOT seen in Pre Admission Testing Consults Requested none ASA ASA4 Proposed Anesthesia Anesthesia Type: MAC History Surgery Operation Date: 07/13/25 17:35 Proposed Procedures p Esophagogastroduodenoscopy Dr. Cornelius Shields MD Height/Weight Height: 5 ft 6 in Weight: 76.5 kg Allergies Allergy/AdvReac Type Severity Reaction Status Date / Time meperidine Allergy Intermediate GI SYMPTOMS Verified 07/12/25 18:51 morphine Allergy Intermediate GI SYMPTOMS Verified 07/12/25 18:51 Ylqyzuv-RZL-MyJ Reductase Allergy Intermediate makes leg Verified 07/12/25 18:51 Inhibitor "sleepy" [Tidchxq-Lze-Sun Reductase Inhibitor] Medications Home Medications Medication Instructions Recorded Confirmed Last Taken FUROSEMIDE (LASIX) 20 mg PO DAILY #0 tabs 02/12/15 Unknown INSULIN DETEMIR (LEVEMIR) 44 unit SC DAILY ##0 02/12/15 Unknown Levothyroxine Sodium (Synthroid) 88 mcg PO DAILY ##0 02/12/15 Unknown Metoprolol Succinate (TOPROL XL) 25 mg PO DAILY #30 tabs 02/12/15 Unknown Pantoprazole (Protonix) 40 mg PO DAILY #30 tabs 02/12/15 Unknown Potassium Chloride (K-Tabs) 30 meq PO DAILY ##0 02/12/15 Unknown Acetaminophen (Tylenol Extra 2 tabs PO Q6H PRN moderate pain ##0 02/17/15 Unknown Strength) Tramadol (Ultram) 50 mg PO Q6H PRN severe pain #40 02/17/15 Unknown tabs platform attachment ##1 02/17/15 Unknown wheel chair ##1 02/17/15 Unknown Active Medications Generic Name Dose Route Start Last Admin Trade Name Freq PRN Reason Stop Dose Admin Clopidogrel Bisulfate 75 mg 07/13/25 09:00 07/13/25 08:12 Clopidogrel Bisulfate 75 Mg Tab PO 08/12/25 08:59 75 mg QAM PAMELLA Administration Escitalopram Oxalate 5 mg 07/13/25 09:00 07/13/25 08:12 Escitalopram Oxalate 10 Mg Tab PO 08/12/25 08:59 5 mg QAM PAMELLA Administration Pantoprazole Sodium 40 mg/ 100 mls @ 20 mls/hr 07/12/25 16:15 07/13/25 11:37 Dextrose IV 08/11/25 16:14 0 mg/hr Q5H PAMELLA 0 mls/hr Infusion 8 MG/HR Lactated Ringer's 1,000 mls @ 80 mls/hr 07/12/25 21:14 07/13/25 11:37 Lr IV 07/13/25 22:13 0 mls/hr .[id number] PAMELLA Infusion Insulin Aspart 0 units 07/12/25 21:30 07/13/25 05:46 Insulin Aspart Per Unit Charge SC 08/11/25 21:29 1 units Q6 PAMELLA Administration Levothyroxine Sodium 88 mcg 07/13/25 06:30 07/13/25 05:46 Levothyroxine Sodium 88 Mcg Tablet PO 08/12/25 06:29 88 mcg DAILYBB PAMELLA Administration Metoprolol Succinate 12.5 mg 07/13/25 09:00 07/13/25 08:14 Metoprolol Succ 25mg Ext Rel Tab PO 08/12/25 08:59 Not Given DAILY PAMELLA NPO Date Last Intake of Fluids: 07/12/25 Time Last Intake of Fluids: 15:00 Date Last Intake of Solids: 07/12/25 Time Last Intake of Solids: 08:00 Exercise / Class Metabolic Activity III < 4 Walking/Shop/Light housework Past Anesthesia History No Hx of Anesthesia Complications and No Family Hx of Anesthesia Complications History of PONV No Hx of PONV and No Hx of Motion Sickness Social History Smoking Status: Never smoker Do You Dip or Chew Tobacco: No Hx Alcohol Use: No Hx Substance Use: No Physical Exam Vital Signs Last Vital Signs Temp 37.1 C 07/13/25 11:53 Pulse 66 07/13/25 11:53 Resp 16 07/13/25 11:53 BP 162/76 H 07/13/25 11:53 Pulse Ox 96 07/13/25 11:53 O2 Del Method Room Air 07/13/25 11:53 Testing Laboratory Results 07/13/25 08:54 07/13/25 06:18 PT 11.9 Seconds (9.0-12.0) 07/12/25 16:00 INR 1.1 (0.9-1.1) 07/12/25 16:00 APTT 24 Seconds (21-31) 07/12/25 16:00 Blood Type A Positive 07/12/25 16:29 Antibody Screen NEGATIVE 07/12/25 16:29 07/13/25 07/13/25 08:07 05:39 POC Glucose 139 H 158 H Electrocardiogram Date: 07/12/25 Findings: + NSR @ (@ 64 w/ 1st degree AVB;RBBB;LAFB), + LVH and + RBBB
[2025-07-13] MEDS ORDERED: ATROPINE SULFATE 0.1 MG/ML 10ML SYR IV PRN (12:06)
--- NOTE | 2025-07-13 13:07 | GI REPORT ---
[facility] Patient: ANABELLE NEWBERRY : 1940 Sex at : Female Age: 84 Years Procedure: Upper GI endoscopy Date: 07/13/2025 Attending Physician: Ovidio Shields MD Referring MD: Referred Self; Steven Valencia Indications: - Melena - Suspected upper gastrointestinal bleeding Medications: - Monitored Anesthesia Care Complications: - No immediate complications. Estimated Blood Loss: - Estimated blood loss was minimal. Procedure: - The egd scope was introduced through the mouth and advanced to the third part of the duodenum. - The upper GI endoscopy was accomplished without difficulty. - The patient tolerated the procedure well. Findings: - A medium-sized hiatal hernia was present. - Multiple medium sessile polyps were found in the gastric body. - In the body of the stomach there is a erythematous lesion. Had a small central defect. Bled on contact. 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 Because of the central defect biopsies performed and the area was cauterized and clipped. - The examined duodenum was normal. Impression: - Medium-sized hiatal hernia. - Multiple gastric polyps. - In the body of the stomach there is a erythematous lesion. Had a small central defect. Bled on contact. 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 Because of the central defect biopsies performed and the area was cauterized and clipped. - Normal examined duodenum. - No specimens collected. Recommendation: - Await pathology results. - Lesion of the stomach could be source of bleeding though was not spontaneously bleeding. AVMs distal to the region of the upper endoscope are not excluded. Patient still having melena hemoglobin is dropped. Observe for further bleeding. Can continue Plavix at this time. Reintroduce Eliquis once counts stable and melena settling. Procedure Code(s): - 62013, Esophagogastroduodenoscopy, flexible, transoral; diagnostic, including collection of specimen(s) by brushing or washing, when performed (separate procedure) Diagnosis Code(s): - K92.1, Melena (includes Hematochezia) - K44.9, Diaphragmatic hernia without obstruction or gangrene - K31.7, Polyp of stomach and duodenum CPT(R) - 2022 copyright [employer]. All Rights Reserved. The CPT codes, CCI edits and ICD codes generated are intended as suggestions and were generated based on input data. These codes are preliminary and upon shore working supervisor review may be revised to meet current compliance and payer requirements. The provider is responsible for the final determination of appropriate codes, and modifiers. Ovidio Shields MD This document has been electronically signed. Note Initiated:07/13/2025 Note Completed:07/13/2025 1:06 PM [id number]
--- NOTE | 2025-07-13 13:41 | Anesthesiology Progress Note ---
Date of Service July 13, 2025 Anesthesia Post Procedure Vital Signs Vital Signs: Temp Pulse Pulse Pulse Resp BP BP 07/13/25 13:39 71 16 07/13/25 13:20 75 16 07/13/25 13:05 96 H 17 07/13/25 11:53 37.1 C 66 16 07/13/25 07:25 36.9 C 67 18 07/13/25 06:17 73 07/13/25 03:31 36.4 C L 56 L 18 112/53 L 07/12/25 22:55 72 07/12/25 21:45 36.8 C 95 H 18 150/82 H 07/12/25 21:14 36.8 C 96 H 18 150/82 H 07/12/25 19:30 67 17 157/74 H 07/12/25 18:30 71 16 147/74 H 07/12/25 18:00 67 18 151/81 H 07/12/25 17:00 69 16 131/73 07/12/25 16:51 70 07/12/25 16:30 68 21 148/71 H 07/12/25 16:05 71 07/12/25 15:46 36.6 C 91 H 18 109/61 BP Pulse Ox O2 Del Method 07/13/25 13:39 144/72 H 97 Room Air 07/13/25 13:20 131/60 97 Room Air 07/13/25 13:05 112/53 L 96 Room Air 07/13/25 11:53 162/76 H 96 Room Air 07/13/25 07:25 95/51 L 95 Room Air 07/13/25 06:17 07/13/25 03:31 95 Room Air 07/12/25 22:55 07/12/25 21:45 96 Room Air 07/12/25 21:14 96 Room Air 07/12/25 19:30 96 07/12/25 18:30 97 07/12/25 18:00 97 07/12/25 17:00 97 07/12/25 16:51 07/12/25 16:30 96 07/12/25 16:05 95 Room Air 07/12/25 15:46 96 Room Air Pain Intensity Medial Abdomen: Pain Intensity: 3 Transfer of Care Handoff Completed per policy Notes Mental Status: alert / awake / arousable Patient Amnestic to Procedure: Yes Nausea / Vomiting: adequately controlled Pain: adequately controlled Airway Patency, RR, SpO2: stable & adequate BP & HR: stable & adequate Hydration State: stable & adequate Anesthetic Complications: no major complications apparent
--- NOTE | 2025-07-13 13:41 | Electrocardiogram Report ---
Test Reason : Blood Pressure : */* mmHG Vent. Rate : 66 BPM Atrial Rate : 66 BPM P-R Int : 216 ms QRS Dur : 138 ms QT Int : 414 ms P-R-T Axes : * -56 34 degrees QTcB Int : 434 ms Sinus rhythm with 1st degree A-V block Right bundle branch block Left anterior fascicular block Bifascicular block Minimal voltage criteria for LVH, may be normal variant Premature ventricular complexes Abnormal ECG When compared with ECG of 14-Jul-2024 13:55, QT has shortened Confirmed by Karl Rai ([id number]) on 07/13/2025 1:41:03 PM Referred By: REFERRED SELF Confirmed By: Karl Rai
[2025-07-13] MEDS: ONDANSETRON INJ 2 MG/ML 2 ML VIAL ONE (14:45)
[2025-07-13] MEDS: LIDOCAINE 2% 2 ML VIAL/AMP(20MG/ML) INFIL ONE (14:45)
[2025-07-13] MEDS: PROPOFOL IV EMULSION 10 MG/ML 20 ML VIAL IV ONE (14:46)
[2025-07-13] MEDS: PHENYLEPHRINE 100MCG/ML 5ML SYR ONE (14:46)
[2025-07-13] MEDS: INSULIN ASPART PER UNIT CHARGE SC SCH (20:47)
[2025-07-14] MEDS: ACETAMINOPHEN 1,000 MG/100 ML VIAL IV PRN (01:37)
[2025-07-14 08:51] LABS: Hematocrit (blood only) 25.5 % (37.0-47.0); Hemoglobin 7.9 g/dl (12.0-16.0); Immature Granulocytes # (auto) 0.01 K/uL (0.01-0.20); Immature Granulocytes % (auto) 0.2 %; Mean Corpuscular Hemoglobin 25.2 pg (25.0-34.0); Mean Corpuscular Volume 81.2 fL (80.0-100.0); Platelet Count 175 K/uL (130-400); RDW Standard Deviation 43.2 fL (36.4-46.3); Red Blood Count 3.14 M/uL (4.20-5.40); White Blood Count 4.12 K/ul (4.8-10.8)
[2025-07-14 09:07] LABS: Anion Gap 6.0 (3-11); Blood Urea Nitrogen 11.0 mg/dl (6-23); Calcium 9.1 mg/dl (8.6-10.3); Carbon Dioxide 27.0 mmol/L (21-32); Chloride 108.0 mmol/L (98-107); Creatinine Clr Calc Pharmacy 70.3 ml/min; Glucose 147.0 mg/dl (70-99(Fasting)); Magnesium 1.7 mg/dl (1.7-2.4); Potassium 3.6 mmol/L (3.5-5.1); Sodium 141.0 mmol/L (136-145)
[2025-07-14 09:14] LABS: Ovalocytes 1+
--- NOTE | 2025-07-14 10:00 | Gastroenterology Progress Note ---
Date of Service July 14, 2025 Assessment & Plan (1) Melena: (2) Gastric AVM: Plan -Continue PPI therapy -Await biopsies -Continue to monitor H/H -Continue to monitor for further overt GI blood loss Admission and Anticipated Discharge Date Admission Date: July 12, 2025 Supervising Physician Co-Signing Physician Notes Clinically no bleeding. Eliquis restarted. We did identify a lesion in the stomach that does not exclude further bleeding sources distal to the region of the upper scope. Can discharge if hemoglobin stable. Patient return if weakness dizziness or continued melanotic stools. Lotus Sahin is an 84 yo female with melena and anemia. She underwent an EGD on 07/13/25 that indicated a probable gastric AVM. Biopsies are pending. She has no further melena. She has an H/H of 7.9/25.5. Review of Systems Constitutional: no fever and no chills Gastrointestinal: no abdominal pain and no melena Physical Exam Constitutional: well developed Respiratory: normal respiratory effort Psychiatric: Orientation: alert and oriented x 3 Results & Data Results & Data Vital Signs (Past 12 Hours) Vital Signs Temp Pulse Resp BP Pulse Ox O2 Del Method 07/14/25 07:34 36.7 C 72 16 107/63 93 Room Air 07/14/25 02:49 37 C 73 18 104/53 L 93 Room Air 07/13/25 22:06 36.4 C L 90 18 155/66 H 93 Room Air PG Care Time/CCT Total # of Minutes Spent Total Time Spent with Patient: Total time spent is greater than 50% in coordination of care (as documented) at patient's floor/unit and/or counseling patient: Coding Level of Care Code 52928 SUB INP/OBS CARE 2/35MIN Diagnoses Melena K92.1 Gastric AVM K31.819
--- NOTE | 2025-07-14 11:42 | Hospitalist Progress Note ---
Date of Service July 14, 2025 Assessment & Plan (1) Upper GI bleed: (2) Chronic anticoagulation: (3) Compression fracture of L4 vertebra: (4) Diabetes mellitus, type II: (5) Hypertension: (6) Hypothyroidism: (7) GERD (gastroesophageal reflux disease): (8) Paroxysmal A-fib: (9) CAD (coronary artery disease): (10) Spinal stenosis: Plan 84 y/o female with PMHx of T2DM, hypothyroidism, pAFib on Eliquis, GERD, spinal stenosis, CAD s/p coronary stenting January 2025, porcine aortic valve replacement, stroke April 2024 presents with progressive fatigue over the past week and melena: #Upper GI Bleed // #Acute blood loss anemia: likely acute upper GI bleed, patient is on chronic anticoagulation but otherwise does not have obvious predisposing factors hgb on admission 9.6, now 7.9 EGD: erythematous lesion in body of stomach most likely gastric AVM - bx performed, area cauterized & clipped. Has been tolerating clear liquid diet, advance to regular. Added back in stool softener as per pt she takes BID at home switch from Protonix drip to Protonix 40mg PO BID Eliquis remains on hold until hgb stabilizes. #Acute L4 compression fracture // #Spinal stenosis: Incidentally noted acute superior endplate compression deformity of L4 Of note, patient had mechanical ground level fall about 3 weeks ago Pain control as needed with Tylenol, Tramadol #pAFib // #h/o stroke: Eliquis on hold, will plan to resume when able #CAD // #HTN // #CHF: Continue Metoprolol, Plavix, Lasix Plavix has been continued thus far. #T2DM: BSG checks ACHS SSI #Hypothyroidism: Continue Synthroid DVT prophylaxis: hold in setting of acute GI bleeding Full Code Anticipate discharge home tomorrow, 07/15 Admission and Anticipated Discharge Date Admission Date: July 12, 2025 Supervising Physician Co-Signing Physician Notes The patient was not seen by me. The chart was reviewed. Case discussed with MONICA Estrella. Agree with assessment and plan Subjective Kaitlyn was seen & examined this morning. She reports she is feeling okay today, has not had a BM thus far since her EGD. Denies abd pain, N/V Physical Exam Physical Exam: General: NAD, VS: BP 107/63; P72; R16; T36.7C Resp: normal respiratory effort Extremities: Moves all extremities, no edema Neuro: A&O x3 Skin: intact, no lesions noted Results & Data Results & Data Vital Signs (Past 12 Hours) Vital Signs Temp Pulse Resp BP Pulse Ox O2 Del Method 07/14/25 07:34 36.7 C 72 16 107/63 93 Room Air 07/14/25 02:49 37 C 73 18 104/53 L 93 Room Air PG Care Time/CCT Total # of Minutes Spent Total Time Spent with Patient: Total time spent is greater than 50% in coordination of care (as documented) at patient's floor/unit and/or counseling patient: Coding Level of Care Code 40976 SUB INP/OBS CARE 2/35MIN Diagnoses Upper GI bleed K92.2 Chronic anticoagulation Z79.01 Compression fracture of L4 vertebra S32.040A Diabetes mellitus, type II E11.9 Hypertension I10 Hypothyroidism E03.9 GERD (gastroesophageal reflux disease) K21.9 Paroxysmal A-fib I48.0 CAD (coronary artery disease) I25.10 Spinal stenosis M48.00
[2025-07-14] MEDS: DOCUSATE SODIUM 100 MG CAP PO SCH (20:33)
[2025-07-15 08:00] VITALS: RESP 18
[2025-07-15 08:39] LABS: Hematocrit (blood only) 25.3 % (37.0-47.0); Hemoglobin 7.8 g/dl (12.0-16.0); Immature Granulocytes # (auto) 0.02 K/uL (0.01-0.20); Immature Granulocytes % (auto) 0.6 %; Mean Corpuscular Hemoglobin 24.9 pg (25.0-34.0); Mean Corpuscular Volume 80.8 fL (80.0-100.0); Platelet Count 179 K/uL (130-400); RDW Standard Deviation 43.4 fL (36.4-46.3); Red Blood Count 3.13 M/uL (4.20-5.40); White Blood Count 3.63 K/ul (4.8-10.8)
--- NOTE | 2025-07-15 09:14 | Discharge Summary ---
Discharge Summary Date of Service July 15, 2025 Principal Dx & Hospital Course #1 = Principal Diagnosis (1) Upper GI bleed: (2) Chronic anticoagulation: (3) Compression fracture of L4 vertebra: (4) Diabetes mellitus, type II: (5) Hypertension: (6) Hypothyroidism: (7) GERD (gastroesophageal reflux disease): (8) Paroxysmal A-fib: (9) CAD (coronary artery disease): (10) Spinal stenosis: Plan 84 y/o female with PMHx of T2DM, hypothyroidism, pAFib on Eliquis, GERD, spinal stenosis, CAD s/p coronary stenting January 2025, porcine aortic valve replacement, stroke April 2024 presents with progressive fatigue over the past week and melena: #Upper GI Bleed // #Acute blood loss anemia: likely acute upper GI bleed, patient is on chronic anticoagulation but otherwise does not have obvious predisposing factors hgb on admission 9.6, now 7.8, recommend PO OTC Ferrous sulfate on discharge & follow up w/ PCP next week for recheck of hgb. 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 Tolerating regular diet. Added back in stool softener as per pt she takes BID at home switch from Protonix drip to Protonix 40mg PO BID on discharge. Eliquis remains on hold until hgb stabilizes. --> follow up w/ PCP for further recommendations on when this should be resumed. #Acute L4 compression fracture // #Spinal stenosis: Incidentally noted acute superior endplate compression deformity of L4 Of note, patient had mechanical ground level fall about 3 weeks ago Pain control as needed with Tylenol, Tramadol #pAFib // #h/o stroke: Eliquis on hold, will plan to resume when able #CAD // #HTN // #CHF: Continue Metoprolol, Plavix, Lasix Plavix has been continued thus far. #T2DM: Resume home regimen on discharge. #Hypothyroidism: Continue Synthroid Patient discharged home 07/15 Admission HPI Per Admitting Provider 84 y/o female with PMHx of T2DM, hypothyroidism, pAFib on Eliquis, GERD, spinal stenosis, CAD s/p coronary stenting January 2025, porcine aortic valve replacement 2021, stroke April 2024 presents with progressive fatigue over the past week and melena. Patient reports MCCABE that has progressively intensified over the past week. Denies chest pain, shortness of breath at rest. Noticed black, tarry stool earlier today. Denies h/o GI bleed. Patient is on a daily PPI for GERD. Denies NSAID or steroid use. Denies recent vomiting. Denies h/o liver disease. Denies EtOH or tobacco use. Patient is on Eliquis for pAF, reports stroke in April 2024 that occurred in the setting of inconsistent Eliquis therapy. Discharge Exam General: NAD, VS: BP 148/68; P72; R18; T36.7C Resp: normal respiratory effort Extremities: Moves all extremities, no edema Neuro: A&O x3 Skin: intact, no lesions noted Discharge Plan Discharge Items Patient Disposition: Home - Self-Care Reason For Visit: UPPER GI BLEED Discharge Diagnosis: Gastric AVM Condition on Discharge: Fair Activity: Resume your previous activity Non-emergency contact: Primary Care Provider and Court Recording Monitor Call non-emergency contact if: you have any medication questions and your symptoms worsen Follow-up/Referrals: Keenan Vivar MD [Primary Care Provider] - Ovidio Shields MD [Physician] - Diet: Regular Addtl Attending Provider Instructions: Ms. Oakley, You were recently hospitalized secondary to dark stools and feeling fatigued. You were found to have a vessel that was bleeding in your stomach. This was cauterized and you have been on medication since to help heal your stomach. Medications: Your medication list has been reviewed and reconciled upon discharge to ensure accuracy and continuity of care. An updated list of all your medications is included with your hospital discharge paperwork. Please review this list closely, and make note of any changes. Pantoprazole 40mg twice daily. - Your first dose at home will be this evening, 07/15. Consider taking an over the counter iron supplement to help with your low blood counts. This can cause constipation and dark stools. Please hold your Eliquis until you are seen in follow up outpatient by your [facility]. For back pain: you may use Tylenol 1000mg every 8 hours as needed. Take your medications as instructed; do not skip a dose of your medicines. Make sure all of your doctors know every medicine you are taking (including nwfz-hvj-hocrvan medicines, vitamins, and supplements). Call your primary care provider before taking any new medicines (including over- the-counter medicines, vitamins, and supplements), because some of these may interact with your current medications, or may make your symptoms worse. Tell your primary care provider if you cannot afford your medications. Activity: You can do normal everyday activities as your body allows. Take rest breaks if you feel tired. Do not overexert. Stop activity if you have pain, shortness of breath or feel dizzy. Follow-up appointments: Make an appointment with your primary care physician within one week of discharge. A copy of this summary will be sent to them. Every time you see your primary care physician, or any other doctor, bring your medication list, and a list of questions. Please follow up with gastroenterology on an outpatient basis. Their phone number is above if you should have questions or concerns. CONTACT YOUR PRIMARY CARE PROVIDER if you experience any of the following: Shortness of breath or difficulty breathing Fevers or chills Feeling tired with normal activity or experiencing dizziness or fainting Difficulty following your treatment plan, or difficulty taking medications CALL 911 OR GO TO THE EMERGENCY DEPARTMENT if you experience any of the following: Severe abdominal pain or nausea/vomiting Severe chest pain, or chest pain that radiates (moves) to your jaw or arm Sudden, severe shortness of breath or difficulty breathing Thank you for allowing us to participate in your care. Pending Studies at Discharge: Yes Studies:: biopsies from EGD Stand-Alone Forms: My [facility] Compare, Smoking Cessation Medications and DC Order Prescriptions: New pantoprazole 40 mg Tablet,Delayed Release (Dr/Ec) 40 mg PO BID Qty: 60 0RF Continued FUROSEMIDE (LASIX) 20 MG tablet 20 mg PO DAILY Qty: 0 INSULIN DETEMIR (LEVEMIR) 100 UNIT/ INJECTION 44 unit SC DAILY Qty: 0 Levothyroxine Sodium (Synthroid) 88 MCG tablet 88 mcg PO DAILY Qty: 0 Metoprolol Succinate (TOPROL XL) 25 MG [id number] 25 mg PO DAILY Qty: 30 Potassium Chloride (K-Tabs) 10 MEQ [id number] 30 meq PO DAILY Qty: 0 Acetaminophen (Tylenol Extra Strength) 500 MG tablet 2 tabs PO Q6H PRN (Reason: moderate pain) Qty: 0 0RF Tramadol (Ultram) 50 MG tablet 50 mg PO Q6H PRN (Reason: severe pain) Qty: 40 1RF wheel chair Qty: 1 0RF Rx Instructions: Dx: left ankle fracture platform attachment Qty: 1 0RF Rx Instructions: left platform attachment for walker Dx: left wrist fracture Discontinued Pantoprazole (Protonix) 40 MG tablet 40 mg PO DAILY Qty: 30 Discharge Orders: Discharge Order (Routine); Ordered 07/15/25 Ordered By: Yuliya Sarmiento Admission Data Admit Date/Time: 07/12/25 19:42 Attending Provider: Steven Valencia Admit Provider: Alex Alston Primary Care Provider: Keenan Vivar Other Providers: Ovidio Shields; Rg Aceves Hospital Stay Data Consultations 07/12/25 18:44 ED Decision to Admit Stat 07/12/25 19:58 Consult Gastroenterology Routine Procedures Performed Operation Date: 07/13/25 17:35 Actual Procedures p EGD Hemostasis - Ovidio Shields MD Diagnostic Imagining Performed 07/12/25 15:59 CT abd pelvis IV con only Stat Pending Results Patient Have Any Pending Studies at Discharge: Yes Discharge Instructions Given to Patient (Per Discharging Provider) Ms. Oakley, Ray were recently hospitalized secondary to dark stools and feeling fatigued. You were found to have a vessel that was bleeding in your stomach. This was cauterized and you have been on medication since to help heal your stomach. Medications: Your medication list has been reviewed and reconciled upon discharge to ensure accuracy and continuity of care. An updated list of all your medications is included with your hospital discharge paperwork. Please review this list closely, and make note of any changes. Pantoprazole 40mg twice daily. - Your first dose at home will be this evening, 07/15. Consider taking an over the counter iron supplement to help with your low blood counts. This can cause constipation and dark stools. Please hold your Eliquis until you are seen in follow up outpatient by your family doctor. For back pain: you may use Tylenol 1000mg every 8 hours as needed. Take your medications as instructed; do not skip a dose of your medicines. Make sure all of your doctors know every medicine you are taking (including qorf-blu-ojhvksx medicines, vitamins, and supplements). Call your primary care provider before taking any new medicines (including over- the-counter medicines, vitamins, and supplements), because some of these may interact with your current medications, or may make your symptoms worse. Tell your primary care provider if you cannot afford your medications. Activity: You can do normal everyday activities as your body allows. Take rest breaks if you feel tired. Do not overexert. Stop activity if you have pain, shortness of breath or feel dizzy. Follow-up appointments: Make an appointment with your primary care physician within one week of discharge. A copy of this summary will be sent to them. Every time you see your primary care physician, or any other doctor, bring your medication list, and a list of questions. Please follow up with gastroenterology on an outpatient basis. Their phone number is above if you should have questions or concerns. CONTACT YOUR PRIMARY CARE PROVIDER if you experience any of the following: Shortness of breath or difficulty breathing Fevers or chills Feeling tired with normal activity or experiencing dizziness or fainting Difficulty following your treatment plan, or difficulty taking medications CALL 911 OR GO TO THE EMERGENCY DEPARTMENT if you experience any of the following: Severe abdominal pain or nausea/vomiting Severe chest pain, or chest pain that radiates (moves) to your jaw or arm Sudden, severe shortness of breath or difficulty breathing Thank you for allowing us to participate in your care. Supervising Physician Co-Signing Physician Notes The patient was not seen by me. The chart was reviewed. Case discussed with MONICA Estrella. Agree with assessment and plan Total Time Total Time Spent Total Time Spent (In Minutes): 50 Total Time Includes: Examination of the Patient, Discharge Planning and Medication Reconciliation Coding Level of Care Code 84452 INP/OBS DISCH >30 MIN Diagnoses Upper GI bleed K92.2 Chronic anticoagulation Z79.01 Compression fracture of L4 vertebra S32.040A Diabetes mellitus, type II E11.9 Hypertension I10 Hypothyroidism E03.9 GERD (gastroesophageal reflux disease) K21.9 Paroxysmal A-fib I48.0 CAD (coronary artery disease) I25.10 Spinal stenosis M48.00
[2025-07-15 09:21] LABS: Anion Gap 9.0 (3-11); Blood Urea Nitrogen 10.0 mg/dl (6-23); Calcium 9.1 mg/dl (8.6-10.3); Carbon Dioxide 24.0 mmol/L (21-32); Chloride 109.0 mmol/L (98-107); Creatinine Clr Calc Pharmacy 59.4 ml/min; Glucose 155.0 mg/dl (70-99(Fasting)); Potassium 3.6 mmol/L (3.5-5.1); Sodium 142.0 mmol/L (136-145)
[2025-07-15 11:27] VITALS: BP 148/68; PULSE 72; TEMP 98.1; O2SAT 96
== END 2025-07-15 14:32 | disposition home or self-care (01) | DRG 300 ==
LOC: ED 15:28 → SUATTDRO 19:42 → 2N 19:42